=== PATIENT | male | born 1980 | race African-American/Black ===

== ENCOUNTER → 2016-08-04 | Emergency (ER) | payer SELFPAY ==
[~2016-08-04] VITALS: Ht 182.9 cm; Wt 96.2 kg
[~2016-08-04] MED LIST: CARBAMIDE PEROXIDE OTIC 15 ML BOTTLE ONE; CARBAMIDE PEROXIDE OTIC 15 ML BOTTLE OT STA
[2016-08-04 16:09] VITALS: BP 107/63
== END | disposition home or self-care (01) ==
LOC: ER 15:59
DX: H61.23 Impacted cerumen, bilateral (principal)
CPT/HCPCS: 69209; 99283; A4606; Z7610

== ENCOUNTER 2017-12-06 20:03 | Emergency (ER) | payer SELFPAY ==
[~2017-12-06] VITALS: Ht 182.9 cm; Wt 93.0 kg
[2017-12-06 20:15] VITALS: BP 132/76
== END 2017-12-06 21:57 | disposition home or self-care (01) ==
LOC: ER 20:13
DX: H61.23 Impacted cerumen, bilateral (principal)
CPT/HCPCS: 69209; 99282; A4606; Z7610

== ENCOUNTER 2017-12-20 16:33 | Emergency (ER) | payer SELFPAY ==
[~2017-12-20] VITALS: Ht 182.9 cm; Wt 95.3 kg
[2017-12-20 16:33] VITALS: BP 126/84
[2017-12-20] MEDS ORDERED: DOCUSATE SODIUM LIQ 100 MG/10 ML UDC ONE (17:19)
[2017-12-20] MEDS ORDERED: DOCUSATE SODIUM LIQ 100 MG/10 ML UDC NG ONE (17:30)
== END 2017-12-20 18:01 | disposition home or self-care (01) ==
LOC: ER 16:34
DX: H61.23 Impacted cerumen, bilateral (principal); Z60.2 Problems related to living alone
CPT/HCPCS: A4606; Z7610

== ENCOUNTER 2019-02-21 14:19 | Emergency (ER) | payer MEDICAID ==
[~2019-02-21] VITALS: Ht 182.9 cm; Wt 95.3 kg
== END 2019-02-21 14:54 | disposition home or self-care (01) ==
LOC: ER 14:21
DX: B00.9 Herpesviral infection, unspecified (principal); Z60.2 Problems related to living alone

== ENCOUNTER 2019-02-22 15:02 | Emergency (ER) | payer MEDICAID ==
[~2019-02-22] VITALS: Ht 182.9 cm; Wt 95.3 kg
[2019-02-22 15:25] VITALS: BP 145/81
== END 2019-02-22 16:08 | disposition home or self-care (01) ==
LOC: ER 15:04
DX: B00.9 Herpesviral infection, unspecified (principal); A60.02 Herpesviral infection of other male genital organs; Z60.2 Problems related to living alone

== ENCOUNTER 2020-12-08 14:38 | Emergency (ER) | payer MEDICAID ==
[~2020-12-08] VITALS: Ht 182.9 cm; Wt 95.3 kg
[2020-12-08 15:05] VITALS: BP 124/76
[2020-12-08] MEDS ORDERED: VALA10002 PO (15:18)
--- NOTE | 2020-12-08 15:32 | NUR ---
Patient discharged to home in stable condition. Written and verbal after care instructions given. Patient verbalizes understanding of instruction. Pt ambulatory with a steady gait. Rx given to pt.
== END 2020-12-08 15:33 | disposition home or self-care (01) ==
LOC: ER 14:38
DX: A60.02 Herpesviral infection of other male genital organs (principal); Z76.0 Encounter for issue of repeat prescription; Z60.2 Problems related to living alone; Z79.899 Other long term (current) drug therapy

== ENCOUNTER → 2021-11-01 | Emergency (ER) | payer MEDICAID ==
[~2021-11-01] VITALS: Ht 182.9 cm; Wt 93.0 kg
[~2021-11-01] MED LIST changes: -CARBAMIDE PEROXIDE OTIC 15 ML BOTTLE ONE; -CARBAMIDE PEROXIDE OTIC 15 ML BOTTLE OT STA; +VALA10002 PO
[2021-11-01 12:11] VITALS: BP 121/81
--- NOTE | 2021-11-01 13:18 | NUR ---
Patient discharged to home in stable condition. RX,Written and verbal after care instructions given. Patient verbalizes understanding of instruction.
== END | disposition home or self-care (01) ==
LOC: ER 12:07
DX: B00.9 Herpesviral infection, unspecified (principal); Z76.0 Encounter for issue of repeat prescription; Z60.2 Problems related to living alone

== ENCOUNTER 2022-12-08 18:39 | Emergency (ER) | payer MEDICAID ==
[~2022-12-08] VITALS: Ht 182.9 cm; Wt 95.3 kg
[2022-12-08] MEDS ORDERED: VALA10002 PO (19:05)
[2022-12-08 19:28] VITALS: BP 129/81
--- NOTE | 2022-12-08 19:29 | NUR ---
MED REFILL PRESCRIBED
== END 2022-12-08 19:29 | disposition home or self-care (01) ==
LOC: ER 18:45
DX: B99.8 Other infectious disease (principal); Z79.899 Other long term (current) drug therapy; Z60.2 Problems related to living alone